=== PATIENT | female | born 1945 | race Caucasian/White ===

== ENCOUNTER → 2024-01-22 | Outpatient (CLI) | payer OTHER ==
[2024-01-22 10:12] LABS: HEMOGLOBIN A1C 5.1 % (3.8-5.6)
[2024-01-22 10:44] LABS: VITAMIN B12 LEVEL 370 pg/mL (211-911); VITAMIN D,TOTAL (25-0H) 14 ng/mL (30-100)
[2024-01-22 10:45] LABS: FOLATE SERUM > 24.0 ng/mL (5.4-)
== END | disposition home or self-care (01) ==
LOC: LABMN 08:56
PROVIDERS: ATTEND Internal Medicine Geriatric Medicine
DX: I10 Essential (primary) hypertension (principal); E55.9 Vitamin D deficiency, unspecified
CPT/HCPCS: 82306; 82607; 82746; 83036; 84443

== ENCOUNTER 2024-01-29 11:31 | Inpatient (IN) | payer OTHER ==
[~2024-01-29] VITALS: Ht 152.4 cm; Wt 32.4 kg
[2024-01-29] VITALS (7 sets, daily range): BP systolic 128–156; BP diastolic 75–82; PULSE 88–99; RESP 18–20; TEMP 97.5–97.6; O2SAT 97–100
[2024-01-29] MEDS ORDERED: VALS80TA2 PO (11:57)
[2024-01-29] MEDS ORDERED: AVELOX PO (11:57)
[2024-01-29] MEDS ORDERED: AMLO2.5T29 PO (11:57)
[2024-01-29] MEDS ORDERED: FLUT1BLS3 IH (11:57)
[2024-01-29] MEDS ORDERED: BENZ-227 PO (11:57)
[2024-01-29 12:12] LABS: BASOPHILS % (AUTO) 0.3 % (0.0-2.0); EOSINOPHILS % (AUTO) 1.1 % (1.0-6.0); HEMATOCRIT 36.9 % (36-46); HEMOGLOBIN 12.5 g/dL (12.0-16.0); LYMPHOCYTES % (AUTO) 11.3 % (22.0-44.0); MEAN CORPUSCULAR HEMOGLOBIN 30.8 pg (26.0-34.0); MEAN CORPUSCULAR HGB CONC 33.8 G/dL (31.0-37.0); MEAN CORPUSCULAR VOLUME 91 fL (80-100); MONOCYTES # (AUTO) 0.8 K/uL (0.1-1.0); MONOCYTES % (AUTO) 8.6 % (2.0-9.0); NEUTROPHILS % (AUTO) 78.7 % (40.0-70.0); PLATELET COUNT (AUTO) 428 K/uL (150-450); RED BLOOD CELL COUNT(AUTO) 4.05 MIL/uL (4.00-5.20); RED CELL DISTRIBUTION WIDTH 14.7 % (11.5-14.5); WHITE BLOOD COUNT (AUTO) 8.9 K/uL (4.5-11.0)
[2024-01-29 12:31] LABS: TROPONIN I-HIGH SENSITIVITY 8 ng/L (<51)
[2024-01-29] MEDS: SODIUM CHLORIDE 0.9% 1,000 ML IV ONE (12:34)
[2024-01-29 12:37] LABS: B-TYPE NATRIURETIC PEPTIDE 78 pg/mL (0-100)
[2024-01-29 12:51] LABS: ANION GAP 11 mmol/L (8-16); CALCIUM, TOTAL 9.6 mg/dL (8.8-10.5); CARBON DIOXIDE 27 mmol/L (22-29); CHLORIDE 97 mmol/L (98-107); CREATININE 0.72 mg/dL (0.60-1.30); GLOMERULAR FILTR. RATE CALC > 60 mL/min (>60); GLUCOSE,RANDOM 111 mg/dL (70-110); POTASSIUM 3.9 mmol/L (3.5-5.1); SODIUM SERUM 135 mmol/L (136-145); UREA NITROGEN, BLOOD 14 mg/dL (7-18)
[2024-01-29 12:56] LABS: ALANINE AMINOTRANSFERASE 10 U/L (12-78); ALBUMIN 3.2 g/dL (3.4-5.0); ALKALINE PHOSPHATASE 95 U/L (46-116); ASPARTATE AMINOTRANSFERASE 15 U/L (15-37); BILIRUBIN,TOTAL 0.5 mg/dL (0.1-1.0); TOTAL PROTEIN, SERUM 8.2 g/dL (6.4-8.2)
[2024-01-29] MEDS: LEVALBUTEROL 1.25 MG/0.5 ML NEB SOLUTION NEB ONE (13:10)
[2024-01-29] MEDS: IPRATROPIUM BROMIDE 0.5 MG/2.5 ML NEB SOLUTION NEB ONE (13:10)
[2024-01-29] MEDS: MethylPREDNISolone SOD SUCC 125 MG/2 ML VIAL IVP ONE (13:39)
[2024-01-29] MEDS: PIPERACILLIN/TAZO 3.375 GM/D5W 50 ML IV ONE (13:40)
[2024-01-29] MEDS: *CLINICAL-CEFEPIME DOSING CLINICAL ONE (14:15)
[2024-01-29] MEDS: ALBUTEROL SULFATE 2.5 MG/0.5 ML NEB SOLUTION NEB SCH ×2 (15:00→20:47)
[2024-01-29] MEDS: ACETYLCYSTEINE 10% 100 MG/ML 4 ML NEB SOLUTION NEB SCH ×2 (15:00→20:48)
[2024-01-29] MEDS: IPRATROPIUM BROMIDE 0.5 MG/2.5 ML NEB SOLUTION NEB SCH ×2 (15:00→20:48)
[2024-01-29] MEDS ORDERED: ALBUTEROL SULFATE 2.5 MG/0.5 ML NEB SOLUTION NEB PRN (15:30)
[2024-01-29] MEDS ORDERED: MORPHINE SULFATE 2 MG/ML SYRINGE IVP PRN (15:30)
[2024-01-29] MEDS ORDERED: ONDANSETRON HCL 4 MG/2 ML VIAL IVP PRN (15:30)
[2024-01-29] MEDS ORDERED: BISACODYL 10 MG RECTAL RECTAL SUPPOSITORY PR PRN (15:30)
[2024-01-29] MEDS ORDERED: IPRATROPIUM BROMIDE 0.5 MG/2.5 ML NEB SOLUTION NEB PRN (15:30)
[2024-01-29] MEDS ORDERED: CefTRIAXone 1 GM/DEXTROSE 50 ML IV SCH (15:30)
[2024-01-29] MEDS ORDERED: ZOLPIDEM TARTRATE 5 MG TABLET PO PRN (15:30)
[2024-01-29] MEDS ORDERED: MAGNESIUM HYDROXIDE SUSPENSION 30 ML UDCUP PO PRN (15:30)
[2024-01-29] MEDS ORDERED: BENZONATATE 100 MG CAPSULE PO SCH (16:00)
[2024-01-29] MEDS: BENZONATATE 100 MG CAPSULE PO SCH (16:00)
[2024-01-29] MEDS ORDERED: MethylPREDNISolone SOD SUCC 40 MG/ML VIAL IVP SCH (16:00)
[2024-01-29] MEDS: HEPARIN SODIUM,PORCINE 5,000 UNITS/ML VIAL SQ SCH (16:00)
[2024-01-29] MEDS: ACETAMINOPHEN 325 MG TABLET PO PRN (17:47)
[2024-01-29] MEDS: MethylPREDNISolone SOD SUCC 125 MG/2 ML VIAL IVP SCH (18:08)
[2024-01-29] MEDS ORDERED: IPRATROPIUM BROMIDE 0.5 MG/2.5 ML NEB SOLUTION NEB SCH (20:00)
[2024-01-29] MEDS ORDERED: ALBUTEROL SULFATE 2.5 MG/0.5 ML NEB SOLUTION NEB SCH (20:00)
[2024-01-29] MEDS: CEFEPIME HCL 2 GM in DEXTROSE 5%-WATER 50 ML IV SCH (20:08)
[2024-01-29] MEDS: DOCUSATE SODIUM 100 MG CAPSULE PO SCH (20:28)
[2024-01-29] MEDS: GuaiFENesin SR 600 MG ER TABLET PO SCH (20:29)
[2024-01-30] VITALS (15 sets, daily range): BP systolic 123–141; BP diastolic 69–85; PULSE 66–85; RESP 12–20; TEMP 97.5–98.1; O2SAT 98–100
[2024-01-30] MEDS: AmLODIPine BESYLATE 2.5 MG TABLET PO SCH (08:11)
[2024-01-30] MEDS: HYDROCODONE/ACETAMINOPHEN 5-325 MG TABLET PO PRN (08:11)
[2024-01-30] MEDS: PANTOPRAZOLE SODIUM 40 MG DR TABLET PO SCH (08:12)
[2024-01-30] MEDS: VALSARTAN 80 MG TABLET PO SCH (08:12)
[2024-01-30] MEDS ORDERED: SODIUM CHLORIDE 0.9% 500 ML IV ONE (08:19)
[2024-01-30] MEDS ORDERED: MISC MED-CONVERTED FROM AMBULATORY (Fluticasone/Umeclidin/Vilanter (Trelegy Ellipta 100-62 IH SCH (09:00)
[2024-01-30] MEDS: MethylPREDNISolone SOD SUCC 40 MG/ML VIAL IVP SCH (17:15)
[2024-01-31] VITALS (12 sets, daily range): BP systolic 137–158; BP diastolic 66–80; PULSE 62–100; RESP 14–20; TEMP 97.4–98.1; O2SAT 86–100
[2024-01-31] MEDS ORDERED: MOXI400T33 PO (11:44)
[2024-01-31 19:34] LABS: ABG CARBOXYHEMOGLOBIN 0.3 % (0.0-1.5); SOURCE, BLOOD GAS ARTERIAL
[2024-01-31 19:35] LABS: ABG BASE EXCESS -2.7 mmol/L (-2.0-3.0); ABG HCO3 22.5 mmol/L (22.0-26.0); ABG OXYGEN CONTENT 14.3 mL/dL (15.0-23.0); ABG OXYGEN SATURATION 91.9 % (95.0-98.0); ABG OXYHEMOGLOBIN 90.7 % (94.0-100.0); ABG PCO2 35 mmHg (35-45); ABG PH 7.412 (7.35-7.450); ABG TOTAL HEMOGLOBIN 11.2 G/dL (12.0-18.0); PO2, ARTERIAL BG 63.5 mmHg (75.0-83.0)
[2024-01-31 19:36] LABS: ALLEN TEST, BLOOD GAS Positive; SITE, BLOOD GAS LFT RADIAL
[2024-01-31 19:37] LABS: O2 DEVICE,BLOOD GAS ROOM AIR (ROOM AIR)
[2024-02-01 00:03] VITALS: BP 147/84; PULSE 71; RESP 16; TEMP 97.7
[2024-02-01 04:00] VITALS: BP 153/85; PULSE 72; RESP 18; TEMP 97.6
[2024-02-01 07:00] VITALS: PULSE 80; PULSE 82; PULSE 89; RESP 18; RESP 20; O2SAT 95; O2SAT 96; O2SAT 98
[2024-02-01 08:46] VITALS: BP 130/80; PULSE 97; RESP 18; TEMP 97.8
[2024-02-01 11:48] VITALS: BP 129/73; PULSE 82; RESP 18; TEMP 98
[2024-02-01 12:30] VITALS: PULSE 86; PULSE 95; RESP 16; RESP 22; O2SAT 94; O2SAT 95
[2024-02-01] MEDS ORDERED: AMLO2.5T96 PO (12:44)
[2024-02-01] MEDS ORDERED: VALS80TA2 PO (12:44)
[2024-02-01] MEDS ORDERED: PRED-554 PO (12:44)
[2024-02-01] MEDS ORDERED: PANT-31 PO (12:44)
[2024-02-01] MEDS ORDERED: LEVO750T68 PO (12:44)
[2024-02-01] MEDS ORDERED: FLUT1BLS IH (12:44)
[2024-02-01] MEDS ORDERED: BENZ100C68 PO (12:44)
[2024-02-01] MEDS ORDERED: IPRA4AER IH (12:44)
== END 2024-02-01 15:00 | disposition home or self-care (01) | DRG 177 ==
LOC: EMS 11:31 → 5S 13:38
PROVIDERS: ADMIT Internal Medicine; ATTEND Internal Medicine
DX: J15.69 Pneumonia due to other Gram-negative bacteria (principal); E43 Unspecified severe protein-calorie malnutrition; J96.01 Acute respiratory failure with hypoxia; Z68.1 Body mass index [BMI] 19.9 or less, adult; E87.1 Hypo-osmolality and hyponatremia; J44.1 Chronic obstructive pulmonary disease with (acute) exacerbation; J44.0 Chronic obstructive pulmonary disease with (acute) lower respiratory infection; J47.1 Bronchiectasis with (acute) exacerbation; I10 Essential (primary) hypertension; Z87.891 Personal history of nicotine dependence; Z79.899 Other long term (current) drug therapy
CPT/HCPCS: 36600; 71045; 71250; 80053; 82805; 83880; 84484; 85025; 94640; 94667; 94668; 99285; J0692; J1644; J2543; J2920; J2930; J7040; J7060; 36415-L1; 36415-TC; J7613; Z7610

== ENCOUNTER 2024-02-21 08:25 | Inpatient (IN) | payer OTHER ==
[2024-02-21] VITALS (10 sets, daily range): BP systolic 133–142; BP diastolic 67–77; PULSE 81–120; RESP 16–28; TEMP 97.6–97.9; O2SAT 94–99
[~2024-02-21] VITALS: Ht 162.6 cm; Wt 42.0 kg
[~2024-02-21 08:25] MED LIST: AMLO2.5T96 PO; BENZ100C68 PO; FLUT1BLS IH; IPRA4AER IH; LEVO750T68 PO; PANT-31 PO; PRED-554 PO; VALS80TA2 PO
[2024-02-21] MEDS: SODIUM CHLORIDE 0.9% 1,000 ML IV ONE (08:51)
[2024-02-21] MEDS: MethylPREDNISolone SOD SUCC 125 MG/2 ML VIAL IVP ONE (08:51)
[2024-02-21] MEDS: IPRATROPIUM BROMIDE 0.5 MG/2.5 ML NEB SOLUTION NEB ONE (08:52)
[2024-02-21] MEDS: ALBUTEROL SULFATE 2.5 MG/0.5 ML 5 ML NEB SOLUTION NEB ONE (08:52)
[2024-02-21 08:55] LABS: COVID AG,FIA SOURCE NASAL SWAB
[2024-02-21 09:04] LABS: BASOPHILS % (AUTO) 0.3 % (0.0-2.0); EOSINOPHILS % (AUTO) 0.3 % (1.0-6.0); HEMATOCRIT 38.8 % (36-46); HEMOGLOBIN 12.6 g/dL (12.0-16.0); LYMPHOCYTES # (AUTO) 1.1 K/uL (1.0-4.8); LYMPHOCYTES % (AUTO) 8.5 % (22.0-44.0); MEAN CORPUSCULAR HEMOGLOBIN 29.1 pg (26.0-34.0); MEAN CORPUSCULAR HGB CONC 32.6 G/dL (31.0-37.0); MEAN CORPUSCULAR VOLUME 89 fL (80-100); MONOCYTES # (AUTO) 0.8 K/uL (0.1-1.0); MONOCYTES % (AUTO) 5.7 % (2.0-9.0); NEUTROPHILS # (AUTO) 11.3 K/uL (1.8-7.7); PLATELET COUNT (AUTO) 398 K/uL (150-450); RED BLOOD CELL COUNT(AUTO) 4.35 MIL/uL (4.00-5.20); WHITE BLOOD COUNT (AUTO) 13.3 K/uL (4.5-11.0)
[2024-02-21 09:06] LABS: NEUTROPHILS % (AUTO) 85.2 % (40.0-70.0); RBC MORPHOLOGY COMMENT NORMAL RBC MORPH
[2024-02-21 09:16] LABS: SARS-COV2 (COVID) ANTIGEN,FIA Negative (Negative)
[2024-02-21 09:20] LABS: ANION GAP 9 mmol/L (8-16); CALCIUM, TOTAL 8.9 mg/dL (8.8-10.5); CARBON DIOXIDE 28 mmol/L (22-29); CHLORIDE 100 mmol/L (98-107); CREATININE 0.63 mg/dL (0.60-1.30); GLOMERULAR FILTR. RATE CALC > 60 mL/min (>60); GLUCOSE,RANDOM 114 mg/dL (70-110); POTASSIUM 3.7 mmol/L (3.5-5.1); SODIUM SERUM 137 mmol/L (136-145); UREA NITROGEN, BLOOD 18 mg/dL (7-18)
[2024-02-21 09:26] LABS: ALANINE AMINOTRANSFERASE 14 U/L (12-78); ALKALINE PHOSPHATASE 92 U/L (46-116); ASPARTATE AMINOTRANSFERASE 20 U/L (15-37); BILIRUBIN,TOTAL 0.9 mg/dL (0.1-1.0); CREATINE KINASE, TOTAL ONLY 23 U/L (26-192); TOTAL PROTEIN, SERUM 7.9 g/dL (6.4-8.2)
[2024-02-21 09:33] LABS: TROPONIN I-HIGH SENSITIVITY 19 ng/L (<51)
[2024-02-21 09:34] LABS: B-TYPE NATRIURETIC PEPTIDE 72 pg/mL (0-100)
[2024-02-21 09:54] LABS: INFLUENZA TYPE A NEGATIVE FOR TYPE A (NEGATIVE); INFLUENZA TYPE B NEGATIVE FOR TYPE B (NEGATIVE)
[2024-02-21] MEDS ORDERED: BENZONATATE 100 MG CAPSULE PO PRN (10:15)
[2024-02-21] MEDS ORDERED: ONDANSETRON HCL 4 MG/2 ML VIAL IVP PRN (10:30)
[2024-02-21] MEDS ORDERED: ALBUTEROL SULFATE 2.5 MG/0.5 ML NEB SOLUTION NEB PRN (10:30)
[2024-02-21] MEDS ORDERED: BISACODYL 10 MG RECTAL RECTAL SUPPOSITORY PR PRN (10:30)
[2024-02-21] MEDS ORDERED: IPRATROPIUM BROMIDE 0.5 MG/2.5 ML NEB SOLUTION NEB PRN (10:30)
[2024-02-21] MEDS ORDERED: MAGNESIUM HYDROXIDE SUSPENSION 30 ML UDCUP PO PRN (10:30)
[2024-02-21] MEDS ORDERED: DOCUSATE SODIUM 100 MG CAPSULE PO PRN (10:30)
[2024-02-21] MEDS ORDERED: ACETAMINOPHEN 325 MG TABLET PO PRN (10:30)
[2024-02-21 11:26] LABS: ABG BASE EXCESS -1.2 mmol/L (-2.0-3.0); ABG CARBOXYHEMOGLOBIN 1.2 % (0.0-1.5); ABG HCO3 23.9 mmol/L (22.0-26.0); ABG METHEMOGLOBIN 0.9 % (0.0-1.5); ABG OXYGEN CONTENT 15.4 mL/dL (15.0-23.0); ABG OXYGEN SATURATION 97.2 % (95.0-98.0); ABG OXYHEMOGLOBIN 95.2 % (94.0-100.0); ABG PCO2 33 mmHg (35-45); ABG PH 7.457 (7.35-7.450); ABG TOTAL HEMOGLOBIN 11.4 G/dL (12.0-18.0); PO2, ARTERIAL BG 88.6 mmHg (75.0-83.0); SOURCE, BLOOD GAS ARTERIAL; TEMPERATURE, FAHRENHEIT, BG 98.6 FAHREN (96.0-98.6)
[2024-02-21 11:27] LABS: ABG A-A DIFF O2 101.2 mmHg (10-20.0); ALLEN TEST, BLOOD GAS Positive; O2 DEVICE,BLOOD GAS CANNULA (ROOM AIR); SITE, BLOOD GAS LFT RADIAL
[2024-02-21] MEDS: PANTOPRAZOLE SODIUM 40 MG DR TABLET PO SCH (11:31)
[2024-02-21] MEDS: DOXYCYCLINE HYCLATE 100 MG in DEXTROSE 5%-WATER 100 ML IV SCH (12:10)
[2024-02-21] MEDS: MethylPREDNISolone SOD SUCC 40 MG/ML VIAL IVP SCH (15:16)
[2024-02-21] MEDS: HEPARIN SODIUM,PORCINE 5,000 UNITS/ML VIAL SQ SCH (15:16)
[2024-02-21] MEDS: IPRATROPIUM BROMIDE 0.5 MG/2.5 ML NEB SOLUTION NEB SCH (16:09)
[2024-02-21] MEDS: ALBUTEROL SULFATE 2.5 MG/0.5 ML NEB SOLUTION NEB SCH (16:09)
[2024-02-21] MEDS ORDERED: SODIUM CHLORIDE 0.9% 500 ML IV ONE (23:13)
[2024-02-22] VITALS (11 sets, daily range): BP systolic 127–159; BP diastolic 54–87; PULSE 81–106; RESP 16–20; TEMP 97.5–98; O2SAT 96–99
[2024-02-22 06:47] LABS: ALANINE AMINOTRANSFERASE 11 U/L (12-78); ALBUMIN 2.3 g/dL (3.4-5.0); ALKALINE PHOSPHATASE 68 U/L (46-116); ANION GAP 6 mmol/L (8-16); ASPARTATE AMINOTRANSFERASE 22 U/L (15-37); BILIRUBIN,TOTAL 0.4 mg/dL (0.1-1.0); CALCIUM, TOTAL 8.7 mg/dL (8.8-10.5); CARBON DIOXIDE 26 mmol/L (22-29); CHLORIDE 104 mmol/L (98-107); CREATININE 0.44 mg/dL (0.60-1.30); GLOMERULAR FILTR. RATE CALC > 60 mL/min (>60); GLUCOSE,RANDOM 124 mg/dL (70-110); POTASSIUM 4.4 mmol/L (3.5-5.1); SODIUM SERUM 136 mmol/L (136-145); TOTAL PROTEIN, SERUM 6.3 g/dL (6.4-8.2); UREA NITROGEN, BLOOD 11 mg/dL (7-18)
[2024-02-22 07:04] LABS: EOSINOPHILS % (AUTO) 0 % (1.0-6.0); HEMATOCRIT 29.8 % (36-46); HEMOGLOBIN 9.8 g/dL (12.0-16.0); LYMPHOCYTES # (AUTO) 0.7 K/uL (1.0-4.8); LYMPHOCYTES % (AUTO) 8.5 % (22.0-44.0); MEAN CORPUSCULAR HEMOGLOBIN 29.9 pg (26.0-34.0); MEAN CORPUSCULAR VOLUME 91 fL (80-100); MONOCYTES # (AUTO) 0.2 K/uL (0.1-1.0); MONOCYTES % (AUTO) 2.7 % (2.0-9.0); NEUTROPHILS # (AUTO) 7.5 K/uL (1.8-7.7); PLATELET COUNT (AUTO) 304 K/uL (150-450); RED BLOOD CELL COUNT(AUTO) 3.29 MIL/uL (4.00-5.20); RED CELL DISTRIBUTION WIDTH 15.2 % (11.5-14.5); WHITE BLOOD COUNT (AUTO) 8.4 K/uL (4.5-11.0)
[2024-02-22 07:10] LABS: NEUTROPHILS % (AUTO) 88.8 % (40.0-70.0)
[2024-02-22] MEDS: VALSARTAN 80 MG TABLET PO SCH (08:31)
[2024-02-22] MEDS: AmLODIPine BESYLATE 2.5 MG TABLET PO SCH (08:31)
[2024-02-23] VITALS (12 sets, daily range): BP systolic 106–144; BP diastolic 61–85; PULSE 72–98; RESP 16–19; TEMP 97.6–98.3; O2SAT 93–100
[2024-02-23 07:08] LABS: BASOPHILS % (AUTO) 0.1 % (0.0-2.0); EOSINOPHILS % (AUTO) 0 % (1.0-6.0); HEMATOCRIT 29.2 % (36-46); HEMOGLOBIN 9.7 g/dL (12.0-16.0); LYMPHOCYTES # (AUTO) 0.6 K/uL (1.0-4.8); LYMPHOCYTES % (AUTO) 4.6 % (22.0-44.0); MEAN CORPUSCULAR HEMOGLOBIN 29.6 pg (26.0-34.0); MEAN CORPUSCULAR HGB CONC 33.2 G/dL (31.0-37.0); MEAN CORPUSCULAR VOLUME 89 fL (80-100); MONOCYTES # (AUTO) 0.3 K/uL (0.1-1.0); MONOCYTES % (AUTO) 2.1 % (2.0-9.0); NEUTROPHILS # (AUTO) 12.1 K/uL (1.8-7.7); PLATELET COUNT (AUTO) 324 K/uL (150-450); RED BLOOD CELL COUNT(AUTO) 3.27 MIL/uL (4.00-5.20); RED CELL DISTRIBUTION WIDTH 14.9 % (11.5-14.5)
[2024-02-23 07:22] LABS: ANION GAP 8 mmol/L (8-16); CALCIUM, TOTAL 8.9 mg/dL (8.8-10.5); CARBON DIOXIDE 26 mmol/L (22-29); CHLORIDE 103 mmol/L (98-107); CREATININE 0.54 mg/dL (0.60-1.30); GLOMERULAR FILTR. RATE CALC > 60 mL/min (>60); GLUCOSE,RANDOM 115 mg/dL (70-110); POTASSIUM 4.7 mmol/L (3.5-5.1); SODIUM SERUM 137 mmol/L (136-145); UREA NITROGEN, BLOOD 16 mg/dL (7-18)
[2024-02-23 07:37] LABS: NEUTROPHILS % (AUTO) 93.2 % (40.0-70.0)
[2024-02-24] VITALS (16 sets, daily range): BP systolic 127–171; BP diastolic 61–95; PULSE 71–102; RESP 16–20; TEMP 97.5–98.4; O2SAT 95–100
[2024-02-24 07:45] LABS: EOSINOPHILS % (AUTO) 0 % (1.0-6.0); HEMATOCRIT 28.8 % (36-46); HEMOGLOBIN 9.7 g/dL (12.0-16.0); LYMPHOCYTES # (AUTO) 0.8 K/uL (1.0-4.8); LYMPHOCYTES % (AUTO) 8.1 % (22.0-44.0); MEAN CORPUSCULAR HEMOGLOBIN 30.4 pg (26.0-34.0); MEAN CORPUSCULAR HGB CONC 33.6 G/dL (31.0-37.0); MEAN CORPUSCULAR VOLUME 91 fL (80-100); MONOCYTES # (AUTO) 0.5 K/uL (0.1-1.0); NEUTROPHILS # (AUTO) 8.4 K/uL (1.8-7.7); PLATELET COUNT (AUTO) 290 K/uL (150-450); RED BLOOD CELL COUNT(AUTO) 3.18 MIL/uL (4.00-5.20); RED CELL DISTRIBUTION WIDTH 14.9 % (11.5-14.5); WHITE BLOOD COUNT (AUTO) 9.6 K/uL (4.5-11.0)
[2024-02-24 07:56] LABS: ANION GAP 7 mmol/L (8-16); CARBON DIOXIDE 27 mmol/L (22-29); CHLORIDE 104 mmol/L (98-107); CREATININE 0.47 mg/dL (0.60-1.30); GLOMERULAR FILTR. RATE CALC > 60 mL/min (>60); GLUCOSE,RANDOM 85 mg/dL (70-110); POTASSIUM 4.5 mmol/L (3.5-5.1); SODIUM SERUM 138 mmol/L (136-145); UREA NITROGEN, BLOOD 17 mg/dL (7-18)
[2024-02-24 07:58] LABS: NEUTROPHILS % (AUTO) 86.9 % (40.0-70.0)
[2024-02-24] MEDS: DOXYCYCLINE HYCLATE 100 MG TABLET PO SCH (11:54)
[2024-02-24] MEDS: PredniSONE 20 MG TABLET PO SCH (12:43)
[2024-02-25] VITALS (7 sets, daily range): BP systolic 136–150; BP diastolic 86–92; PULSE 69–100; RESP 18; TEMP 97.7–98.3; O2SAT 100
[2024-02-25 07:28] LABS: BASOPHILS % (AUTO) 0.2 % (0.0-2.0); EOSINOPHILS % (AUTO) 0 % (1.0-6.0); HEMATOCRIT 29.7 % (36-46); LYMPHOCYTES % (AUTO) 13.4 % (22.0-44.0); MEAN CORPUSCULAR HEMOGLOBIN 29.7 pg (26.0-34.0); MEAN CORPUSCULAR HGB CONC 33.5 G/dL (31.0-37.0); MEAN CORPUSCULAR VOLUME 89 fL (80-100); MONOCYTES # (AUTO) 0.5 K/uL (0.1-1.0); MONOCYTES % (AUTO) 7.3 % (2.0-9.0); NEUTROPHILS # (AUTO) 5.7 K/uL (1.8-7.7); NEUTROPHILS % (AUTO) 79.1 % (40.0-70.0); PLATELET COUNT (AUTO) 269 K/uL (150-450); RED BLOOD CELL COUNT(AUTO) 3.35 MIL/uL (4.00-5.20); RED CELL DISTRIBUTION WIDTH 14.7 % (11.5-14.5); WHITE BLOOD COUNT (AUTO) 7.2 K/uL (4.5-11.0)
[2024-02-25 07:47] LABS: ANION GAP 8 mmol/L (8-16); CALCIUM, TOTAL 8.7 mg/dL (8.8-10.5); CARBON DIOXIDE 30 mmol/L (22-29); CHLORIDE 102 mmol/L (98-107); CREATININE 0.46 mg/dL (0.60-1.30); GLOMERULAR FILTR. RATE CALC > 60 mL/min (>60); GLUCOSE,RANDOM 71 mg/dL (70-110); POTASSIUM 4.2 mmol/L (3.5-5.1); SODIUM SERUM 139 mmol/L (136-145); UREA NITROGEN, BLOOD 18 mg/dL (7-18)
[2024-02-25] MEDS ORDERED: ALBU18HF12 IH (12:24)
[2024-02-25] MEDS ORDERED: AMLO-257 PO (12:25)
[2024-02-25] MEDS ORDERED: FAMO20 PO (12:25)
[2024-02-25] MEDS ORDERED: VALS80TA2 PO (12:27)
[2024-02-25] MEDS ORDERED: PRED-554 PO (12:28)
== END 2024-02-25 15:40 | disposition home or self-care (01) | DRG 189 ==
LOC: EMS 08:28 → 5S 13:43
PROVIDERS: ADMIT Internal Medicine; ATTEND Internal Medicine
DX: J96.21 Acute and chronic respiratory failure with hypoxia (principal); J15.9 Unspecified bacterial pneumonia; J44.0 Chronic obstructive pulmonary disease with (acute) lower respiratory infection; J47.0 Bronchiectasis with acute lower respiratory infection; J44.1 Chronic obstructive pulmonary disease with (acute) exacerbation; Z20.822 Contact with and (suspected) exposure to COVID-19; I11.9 Hypertensive heart disease without heart failure; D64.9 Anemia, unspecified; Z87.891 Personal history of nicotine dependence; Z82.49 Family history of ischemic heart disease and other diseases of the circulatory system
CPT/HCPCS: 36600; 71045; 80048; 80053; 82550; 82805; 83880; 84145; 84484; 85025; 87040; 87804; 93005; 94640; 94644; 99285; J1644; J2920; J2930; J3490; J7030; J7040; J7060; Q9967; 36415-L1; 36415-TC; J7613

== ENCOUNTER → 2024-04-01 | Outpatient (CLI) | payer OTHER ==
[~2024-04-01] VITALS: Ht 162.6 cm; Wt 41.0 kg
[~2024-04-01] MED LIST changes: +ALBU18HF12 IH; +AMLO-257 PO; -AMLO2.5T96 PO; +BENZ-227 PO; -BENZ100C68 PO; +FAMO20 PO; +HYDR10TA31 PO; -IPRA4AER IH; -LEVO750T68 PO; -PANT-31 PO
[2024-04-01 11:54] VITALS: BP 146/72; PULSE 108; RESP 16; TEMP 97.6; O2SAT 94
== END | disposition home or self-care (01) ==
LOC: SRCNTR 11:22
PROVIDERS: ATTEND Internal Medicine
DX: J96.10 Chronic respiratory failure, unspecified whether with hypoxia or hypercapnia (principal); J47.9 Bronchiectasis, uncomplicated; J44.9 Chronic obstructive pulmonary disease, unspecified; I10 Essential (primary) hypertension; R60.0 Localized edema; Z79.899 Other long term (current) drug therapy; Z82.49 Family history of ischemic heart disease and other diseases of the circulatory system
CPT/HCPCS: G0463; Z7500

== ENCOUNTER → 2024-04-14 | Outpatient (CLI) | payer OTHER ==
[~2024-04-14] MED LIST changes: -AMLO-257 PO
== END | disposition home or self-care (01) ==
LOC: RADPV 09:05
PROVIDERS: ATTEND Internal Medicine
DX: I08.8 Other rheumatic multiple valve diseases (principal); R22.43 Localized swelling, mass and lump, lower limb, bilateral
CPT/HCPCS: 93306; 93970

== ENCOUNTER → 2024-04-29 | Outpatient (CLI) | payer OTHER ==
[~2024-04-29] VITALS: Ht 162.6 cm; Wt 41.5 kg
[~2024-04-29] MED LIST changes: +GUAIF10 PO; +LORA-868 PO
[2024-04-29 10:33] VITALS: BP 154/82; PULSE 111; RESP 18; TEMP 98.1; O2SAT 94
== END | disposition home or self-care (01) ==
LOC: SRCNTR 09:45
PROVIDERS: ATTEND Internal Medicine
DX: J44.9 Chronic obstructive pulmonary disease, unspecified (principal); J47.1 Bronchiectasis with (acute) exacerbation; Z98.890 Other specified postprocedural states; Z87.891 Personal history of nicotine dependence; Z79.899 Other long term (current) drug therapy
CPT/HCPCS: G0463; Z7500

== ENCOUNTER → 2024-05-13 | Outpatient (CLI) | payer OTHER ==
[~2024-05-13] VITALS: Ht 162.6 cm; Wt 41.0 kg
[2024-05-13 10:24] VITALS: BP 158/84; PULSE 99; RESP 16; TEMP 97.8; O2SAT 94
== END | disposition home or self-care (01) ==
LOC: SRCNTR 09:57
PROVIDERS: ATTEND Internal Medicine
DX: J96.10 Chronic respiratory failure, unspecified whether with hypoxia or hypercapnia (principal); I10 Essential (primary) hypertension; J44.9 Chronic obstructive pulmonary disease, unspecified; J47.9 Bronchiectasis, uncomplicated; R60.0 Localized edema; Z79.899 Other long term (current) drug therapy
CPT/HCPCS: G0463; Z7500

== ENCOUNTER 2024-12-09 07:57 | Day surgery (SDC) | payer OTHER ==
[~2024-12-09] VITALS: Ht 162.6 cm; Wt 40.5 kg
[~2024-12-09 07:57] MED LIST changes: -ALBU18HF12 IH; -BENZ-227 PO; -FAMO20 PO; -FLUT1BLS IH; -GUAIF10 PO; +KETOROLAC TROMETHAMINE 0.5% 5 ML OPHTHALMIC SOLUTION ONE; -LORA-868 PO; +MOXIFLOXACIN HCL 0.5% 3 ML OPHTHALMIC SOLUTION ONE; +PHENYLEPHRINE HCL 2.5% 2 ML OPHTHALMIC SOLUTION ONE; -PRED-554 PO; +TETRACAINE HCL/PF 0.5% 4 ML OPHTHALMIC SOLUTION ONE; +TROPICAMIDE 1% 2 ML OPHTHALMIC SOLUTION ONE
[2024-12-09] MEDS: RINGERS SOLUTION,LACTATED 500 ML IV ONE (09:15)
[2024-12-09] MEDS: TROPICAMIDE 1% 2 ML OPHTHALMIC SOLUTION OS SCH (09:15)
[2024-12-09] MEDS: PHENYLEPHRINE HCL 2.5% 2 ML OPHTHALMIC SOLUTION OS SCH (09:15)
[2024-12-09] MEDS: MOXIFLOXACIN HCL 0.5% 3 ML OPHTHALMIC SOLUTION OS SCH (09:15)
[2024-12-09] MEDS: KETOROLAC TROMETHAMINE 0.5% 5 ML OPHTHALMIC SOLUTION OS SCH (09:15)
[2024-12-09] MEDS: EPINEPHrine 1:1,000 [1 MG/ML] VIAL ONE (09:45)
[2024-12-09] MEDS: TETRACAINE HCL/PF 0.5% 4 ML OPHTHALMIC SOLUTION OS ONE (09:45)
[2024-12-09] MEDS: LIDOCAINE/PF 1% 2 ML VIAL ONE (09:45)
[2024-12-09] MEDS: POVIDONE-IODINE 5% 30 ML OPHTHALMIC SOLUTION ONE (09:45)
[2024-12-09] MEDS: BALANCED SALT 15 ML OPHTHALMIC IRRIG.SOLN ONE (09:45)
[2024-12-09] MEDS ORDERED: FentaNYL CITRATE PF 100 MCG/2 ML VIAL IVP ONE (12:00)
[2024-12-09] MEDS ORDERED: MIDAZOLAM HCL 2 MG/2 ML VIAL IVP ONE (12:00)
== END 2024-12-09 11:05 | disposition home or self-care (01) ==
LOC: SURGERY 07:57
PROVIDERS: ATTEND Ophthalmology
DX: H25.12 Age-related nuclear cataract, left eye (principal); I10 Essential (primary) hypertension; Z87.01 Personal history of pneumonia (recurrent); Z79.899 Other long term (current) drug therapy
CPT/HCPCS: 93005; 66984; J0171; J3010; J3490; J2250; V2632

== ENCOUNTER 2025-01-11 05:48 | Day surgery (SDC) | payer OTHER ==
[~2025-01-11] VITALS: Ht 162.6 cm; Wt 39.1 kg
[~2025-01-11 05:48] MED LIST changes: +LISI-892 PO; -TETRACAINE HCL/PF 0.5% 4 ML OPHTHALMIC SOLUTION ONE; -VALS80TA2 PO
[2025-01-11] MEDS: TROPICAMIDE 1% 2 ML OPHTHALMIC SOLUTION OD SCH (06:51)
[2025-01-11] MEDS: PHENYLEPHRINE HCL 2.5% 2 ML OPHTHALMIC SOLUTION OD SCH (06:52)
[2025-01-11] MEDS: KETOROLAC TROMETHAMINE 0.5% 5 ML OPHTHALMIC SOLUTION OD SCH (06:52)
[2025-01-11] MEDS: MOXIFLOXACIN HCL 0.5% 3 ML OPHTHALMIC SOLUTION OD SCH (06:52)
[2025-01-11] MEDS: RINGERS SOLUTION,LACTATED 500 ML IV ONE (07:24)
[2025-01-11] MEDS: TETRACAINE HCL/PF 0.5% 4 ML OPHTHALMIC SOLUTION ONE (08:44)
[2025-01-11] MEDS: POVIDONE-IODINE 5% 30 ML OPHTHALMIC SOLUTION ONE (08:45)
[2025-01-11] MEDS: LIDOCAINE/PF 1% 2 ML VIAL ONE (08:45)
[2025-01-11] MEDS: BALANCED SALT 15 ML OPHTHALMIC IRRIG.SOLN ONE (08:45)
[2025-01-11] MEDS: EPINEPHrine 1:1,000 [1 MG/ML] VIAL ONE (08:46)
[2025-01-11] MEDS ORDERED: MIDAZOLAM HCL 2 MG/2 ML VIAL IVP ONE (12:00)
[2025-01-11] MEDS ORDERED: CHONDR SULF A SOD/HYALURONATE 1.05 ML KIT IO ONE (12:00)
[2025-01-11] MEDS ORDERED: FentaNYL CITRATE PF 100 MCG/2 ML VIAL IVP ONE (12:00)
== END 2025-01-11 10:00 | disposition home or self-care (01) ==
LOC: SURGERY 05:48
PROVIDERS: ATTEND Ophthalmology
DX: H25.11 Age-related nuclear cataract, right eye (principal); R94.31 Abnormal electrocardiogram [ECG] [EKG]; I25.2 Old myocardial infarction; I51.7 Cardiomegaly; I10 Essential (primary) hypertension; J18.9 Pneumonia, unspecified organism
CPT/HCPCS: 66984; 93005; J7321; J0171; J3010; J3490; J2250; V2632

== ENCOUNTER 2025-09-16 19:13 | Inpatient (IN) | payer OTHER, MEDICARE ==
[~2025-09-16] VITALS: Ht 162.6 cm; Wt 42.7 kg
[~2025-09-16 19:13] MED LIST changes: +AMOX-457 PO; +BUDE10.7 IH; +CALC-1275 PO; -KETOROLAC TROMETHAMINE 0.5% 5 ML OPHTHALMIC SOLUTION ONE; +LEVO-72 PO; -LISI-892 PO; -MOXIFLOXACIN HCL 0.5% 3 ML OPHTHALMIC SOLUTION ONE; -PHENYLEPHRINE HCL 2.5% 2 ML OPHTHALMIC SOLUTION ONE; -TROPICAMIDE 1% 2 ML OPHTHALMIC SOLUTION ONE; +VALS80TA2 PO
[2025-09-16 20:32] LABS: COVID AG,FIA SOURCE NASAL SWAB
[2025-09-16] MEDS ORDERED: 0.9% SODIUM CHLORIDE 10 ML SYRINGE IVP PRN (20:45)
[2025-09-16 20:51] LABS: INFLUENZA TYPE A NEGATIVE FOR TYPE A (NEGATIVE); INFLUENZA TYPE B NEGATIVE FOR TYPE B (NEGATIVE); SARS-COV2 (COVID) ANTIGEN,FIA Negative (Negative)
[2025-09-16] MEDS: SODIUM CHLORIDE 0.9% 1,300 ML IV ONE (20:56)
[2025-09-16] MEDS: OXYGEN THERAPY IH SCH (20:56)
[2025-09-16 21:00] LABS: PLATELET COUNT (AUTO) 235 K/uL (150-450); RED BLOOD CELL COUNT(AUTO) 3.16 MIL/uL (4.00-5.20); RED CELL DISTRIBUTION WIDTH 13.7 % (11.5-14.5); WHITE BLOOD COUNT (AUTO) 5.2 K/uL (4.5-11.0)
[2025-09-16 21:08] LABS: CALCIUM, TOTAL 8.9 mg/dL (8.8-10.5); CREATININE 0.31 mg/dL (0.60-1.30); GLOMERULAR FILTR. RATE CALC > 60 mL/min (>60); GLUCOSE,RANDOM 101 mg/dL (70-110); SODIUM SERUM 137 mmol/L (136-145); UREA NITROGEN, BLOOD 11 mg/dL (7-18)
[2025-09-16] MEDS ORDERED: IPRATROPIUM BROMIDE 0.5 MG/2.5 ML NEB SOLUTION NEB PRN (21:15)
[2025-09-16] MEDS ORDERED: ACETAMINOPHEN 325 MG TABLET PO PRN (21:15)
[2025-09-16] MEDS ORDERED: ONDANSETRON HCL 4 MG/2 ML VIAL IVP PRN (21:15)
[2025-09-16 21:17] LABS: LACTIC ACID 0.8 mmol/L (0.4-2.0)
[2025-09-16 21:18] LABS: TROPONIN I-HIGH SENSITIVITY 19 ng/L (<51)
[2025-09-16] MEDS: PIPERACILLIN SODIUM/TAZOBACTAM 2.25 GM in DEXTROSE 5%-WATER 50 ML IV SCH (21:34)
[2025-09-16 22:20] VITALS: BP 161/82; PULSE 97; RESP 20; TEMP 97.9; O2SAT 98
[2025-09-16] MEDS: HEPARIN SODIUM,PORCINE 5,000 UNITS/ML VIAL SQ SCH (23:10)
[2025-09-17] VITALS (13 sets, daily range): BP systolic 133–154; BP diastolic 59–79; PULSE 89–107; RESP 16–20; TEMP 97.5–98.6; O2SAT 95–100
[2025-09-17] MEDS ORDERED: SODIUM CHLORIDE 0.9% 250 ML IV ONE (02:14)
[2025-09-17 04:42] LABS: APPEARANCE,URINE CLEAR (CLEAR); GLUCOSE, URINE (UA) NEGATIVE (NEGATIVE); LEUKOCYTE ESTERASE ,URINE NEGATIVE (NEGATIVE); NITRATE,URINE NEGATIVE (NEGATIVE); OCCULT BLOOD,URINE NEGATIVE (NEGATIVE); SPECIFIC GRAVITIY, URINE 1.012 (1.003-1.030)
[2025-09-17 07:35] LABS: PLATELET COUNT (AUTO) 260 K/uL (150-450); RED BLOOD CELL COUNT(AUTO) 3.46 MIL/uL (4.00-5.20); RED CELL DISTRIBUTION WIDTH 13.8 % (11.5-14.5); WHITE BLOOD COUNT (AUTO) 3.1 K/uL (4.5-11.0)
[2025-09-17] MEDS: DOCUSATE SODIUM 100 MG CAPSULE PO SCH (07:59)
[2025-09-17 08:10] LABS: CALCIUM, TOTAL 8.7 mg/dL (8.8-10.5); CREATININE 0.40 mg/dL (0.60-1.30); GLOMERULAR FILTR. RATE CALC > 60 mL/min (>60); GLUCOSE,RANDOM 126 mg/dL (70-110); SODIUM SERUM 140 mmol/L (136-145); UREA NITROGEN, BLOOD 11 mg/dL (7-18)
[2025-09-17] MEDS: ALBUTEROL SULFATE 2.5 MG/0.5 ML NEB SOLUTION NEB SCH (10:40)
[2025-09-17] MEDS: IPRATROPIUM BROMIDE 0.5 MG/2.5 ML NEB SOLUTION NEB SCH (10:40)
[2025-09-17] MEDS: ACETYLCYSTEINE 10% 100 MG/ML 4 ML NEB SOLUTION NEB SCH (10:40)
[2025-09-17] MEDS: PIPERACILLIN SODIUM/TAZOBACTAM 2.25 GM in DEXTROSE 5%-WATER 50 ML IV SCH (14:48)
[2025-09-18] VITALS (16 sets, daily range): BP systolic 130–155; BP diastolic 68–77; PULSE 87–102; RESP 14–20; TEMP 98.1–98.2; O2SAT 97–99
[2025-09-18] MEDS: ALBUTEROL SULFATE 2.5 MG/0.5 ML NEB SOLUTION NEB PRN (03:38)
[2025-09-18] MEDS: FAMOTIDINE 20 MG TABLET PO SCH (17:12)
[2025-09-18] MEDS: PB/HYOSCY/ATR/SCOP/LIDO/MAALOX 55 ML BOTTLE PO ONE (17:15)
[2025-09-19] VITALS (13 sets, daily range): BP systolic 133–156; BP diastolic 72–86; PULSE 82–100; RESP 16–20; TEMP 97.9–98.1; O2SAT 97–99
[2025-09-20] VITALS (13 sets, daily range): BP systolic 150–188; BP diastolic 79–95; PULSE 76–105; RESP 16–20; TEMP 97.9–98.6; O2SAT 93–100
[2025-09-20] MEDS: VALSARTAN 80 MG TABLET PO SCH (09:10)
[2025-09-20] MEDS ORDERED: HYDR10TA31 PO (14:05)
[2025-09-21] VITALS (15 sets, daily range): BP systolic 143–181; BP diastolic 64–93; PULSE 80–112; RESP 16–20; TEMP 98–98.3; O2SAT 97–100
[2025-09-21 06:50] LABS: PLATELET COUNT (AUTO) 222 K/uL (150-450); RED BLOOD CELL COUNT(AUTO) 3.30 MIL/uL (4.00-5.20); RED CELL DISTRIBUTION WIDTH 13.9 % (11.5-14.5); WHITE BLOOD COUNT (AUTO) 5.9 K/uL (4.5-11.0)
[2025-09-21 07:01] LABS: CALCIUM, TOTAL 8.9 mg/dL (8.8-10.5); CREATININE 0.55 mg/dL (0.60-1.30); GLOMERULAR FILTR. RATE CALC > 60 mL/min (>60); GLUCOSE,RANDOM 79 mg/dL (70-110); SODIUM SERUM 142 mmol/L (136-145); UREA NITROGEN, BLOOD 17 mg/dL (7-18)
[2025-09-21] MEDS: VALSARTAN 160 MG TABLET PO SCH (08:49)
[2025-09-21] MEDS ORDERED: CARV3 PO (15:06)
== END 2025-09-21 19:56 | disposition home or self-care (01) | DRG 189 ==
LOC: EMS 19:17 → EDH 21:06 → 4E 22:28
PROVIDERS: ADMIT Internal Medicine; ATTEND Internal Medicine
DX: J96.21 Acute and chronic respiratory failure with hypoxia (principal); E43 Unspecified severe protein-calorie malnutrition; J18.9 Pneumonia, unspecified organism; J44.1 Chronic obstructive pulmonary disease with (acute) exacerbation; J47.1 Bronchiectasis with (acute) exacerbation; J47.0 Bronchiectasis with acute lower respiratory infection; Z68.1 Body mass index [BMI] 19.9 or less, adult; Z20.822 Contact with and (suspected) exposure to COVID-19; F03.90 Unspecified dementia, unspecified severity, without behavioral disturbance, psychotic disturbance, mood disturbance, and anxiety; I10 Essential (primary) hypertension; R00.0 Tachycardia, unspecified; R62.7 Adult failure to thrive; Z87.891 Personal history of nicotine dependence; Z99.81 Dependence on supplemental oxygen; Z79.899 Other long term (current) drug therapy
CPT/HCPCS: 71045; 71250; 80048; 81003; 83605; 83735; 83880; 84145; 84484; 85025; 85610; 87040; 87804; 93005; 94640; 94668; 96361; 96374; 99285; G0378; J1644; J2543; J2919; J7050; J7060; 36415-L1; 36415-TC; J7613